=== PATIENT | female | born 1965 | race African-American/Black ===

== ENCOUNTER 2021-07-08 04:37 | Day surgery (SDC) | payer BC, OTHER ==
[2021-07-07 12:22] VITALS: BMI 47.8
[2021-07-08] MEDS ORDERED: PROMETHAZINE HCL 25 MG/1 ML VIAL IVPUSH PRN (15:03)
[2021-07-08] MEDS ORDERED: ONDANSETRON 4 MG/2 ML VIAL IVPUSH PRN (15:03)
[2021-07-08] MEDS ORDERED: LACTATED RINGERS SOLUTION 1,000 ML IV SCH (15:15)
[2021-07-08] MEDS ORDERED: MIDAZOLAM HCL 2 MG/2 ML SINGLE DOSE VIAL ONE ×2 (15:17→15:40)
[2021-07-08] MEDS ORDERED: SODIUM CHLORIDE 0.9% P/F 10 ML VIAL IJ ONE (15:20)
[2021-07-08] MEDS ORDERED: ceFAZolin SODIUM 1 GM VIAL ONE ×2 (15:20)
[2021-07-08] MEDS ORDERED: CLINDAMYCIN 900 MG PREMIX BAG IVPB ONE (15:33)
[2021-07-08] MEDS ORDERED: CLINDAMYCIN PHOSPHATE 600 MG/4 ML VIAL ONE (15:37)
[2021-07-08 19:27] VITALS: BP 157/90; PULSE 99; TEMP 97.8
[2021-07-17 14:17] LABS: SIZE 2 x 1mm; URIC ACID 100%
== END 2021-07-08 19:30 | disposition home or self-care (01) ==
LOC: JASU-SURG 04:37
PROVIDERS: ATTEND Urology
PROC: 0TC38ZZ Extirpation of Matter from Right Kidney Pelvis, Via Natural or Artificial Opening Endoscopic (ICD-10-PCS; principal; 2021-07-08 15:00)
PROC: 0TC68ZZ Extirpation of Matter from Right Ureter, Via Natural or Artificial Opening Endoscopic (ICD-10-PCS; 2021-07-08 15:00)
PROC: 0T768DZ Dilation of Right Ureter with Intraluminal Device, Via Natural or Artificial Opening Endoscopic (ICD-10-PCS; 2021-07-08 15:00)
PROC: BT1DYZZ Fluoroscopy of Right Kidney, Ureter and Bladder using Other Contrast (ICD-10-PCS; 2021-07-08 15:00)
DX: N20.0 Calculus of kidney (principal); N20.1 Calculus of ureter; E11.9 Type 2 diabetes mellitus without complications; I10 Essential (primary) hypertension; Z79.84 Long term (current) use of oral hypoglycemic drugs
CPT/HCPCS: 36415; 76000-TC-FY; 82360; 82962; 88300-TC; 94760